=== PATIENT | male | born 1940 | race Caucasian/White ===

== ENCOUNTER 2016-07-23 09:24 | Outpatient (CLI) | payer OTHER | END 2016-07-23 23:00 | LOC: RT SRH 09:24 | DX: J98.8 Other specified respiratory disorders (principal) ==

== ENCOUNTER 2016-08-30 13:50 | Outpatient (CLI) | payer OTHER ==
--- NOTE | 2016-08-30 14:25 | DIAGNOSTIC IMAGING REPORT ---
PROCEDURE: XR CHEST 2 VIEW INDICATION: HEMOPTYSIS, initial encounter TECHNIQUE: PA and lateral view. COMPARISON: Chest x-ray 04/24/2016. FINDINGS: Lungs are clear. Borderline cardiomegaly. Mildly tortuous aorta. The mediastinum and pulmonary vessels are normal. Dual lead right-sided pacemaker. Moderate degenerative changes of the spine. Partially visualized hardware of the lumbar spine. IMPRESSION: 1. No acute changes 2. Pacemaker and borderline cardiomegaly
== END 2016-08-30 23:00 ==
LOC: XR SRH 13:50
DX: R04.2 Hemoptysis (principal); Z95.0 Presence of cardiac pacemaker

== ENCOUNTER → 2016-10-31 | Outpatient (CLI) | payer MEDICARE | LOC: LAB SRH 12:21 | DX: R06.00 Dyspnea, unspecified (principal); I50.9 Heart failure, unspecified | CPT/HCPCS: 90074; 90100; 91320; 91631 ==

== ENCOUNTER 2016-11-26 11:59 | Emergency (ER) | payer MEDICARE ==
--- NOTE | 2016-11-26 13:05 | DIAGNOSTIC IMAGING REPORT ---
PROCEDURE: CT HEAD WITHOUT CONTRAST INDICATION: WEAKNESS TECHNIQUE: Axial CT images were acquired through the head. Coronal and sagittal reformations were created. COMPARISON: Head C CT 01/23/2016 FINDINGS: Mild cerebral cortical atrophy. No intracranial hemorrhage or extraaxial fluid collections. Ventricles are normal in size, shape and position. There is no mass, mass effect or midline shift. The mark-white matter differentiation is normal. There is no edema. The calvarium is intact. There is opacification of both maxillary sinuses. Also fluid in the right ethmoid sinus. The extracranial soft tissues and orbits are normal. IMPRESSION: 1. No CT evidence of acute intracranial process. 2. Bilateral maxillary sinus opacification. 3. Findings discussed with Dr. Michele at 01:[address] scans at this facility use dose modulation, iterative reconstruction, and/or weight-based dosing when appropriate to reduce radiation dose to as low as reasonably achievable.
--- NOTE | 2016-11-26 15:24 | ED NURSING NOTES ---
Clinical Report - Nurses [facility] [address] [place] [address] 11/26/2016 12:00 Patient: NOLAN VICTORIA TRIAGE Triage time 1200 PM. Acuity: LEVEL 2. Chief Complaint: NUMBNESS. Alert. No acute distress. SEPSIS SCREEN: Sepsis Screen. Negative (no infection suspected/documented). NYA COMA SCORE: Nya Coma Scale: 15- eyes open spontaneously (4); best verbal response- oriented x 4 (5); best motor response- obeys commands (6). --12:19 Grisel Heaton R.N. late entry - 12:05 PM. --12:27 Terra Lindsey R.N. late entry - 12:05 PM. --12:27 Terra Lindsey R.N. late entry - 12:05 PM. --15:46 Terra Lindsey R.N. 12:05 11/26/16. BP: 139/90 (regular adult cuff) taken on the left arm, via an automated monitor, while sitting. HR: 88. RR: 16 (regular and unlabored). O2 saturation: 88% on room air. Temp: 97.8 F (oral). Pain level now: 4/10. Additional comments: on a pain pump. --15:46 Terra Lindsey R.N. Weight: 93.8 kg stated. Height/Length: 70 inches Per Patient. BMI: 29.7. --12:06 Grisel Heaton R.N. Medications Amoxicillin Oral. Digoxin Oral (Tablet 125 mcg) 1 tablet, daily. Flecainide Acetate Oral (Tablet 100 mg) 1 tablet, 3x a day. Lasix Oral (Tablet 40 mg) 1 tablet, 2x a day. --12:10 Grisel Heaton R.N. Metoprolol Succinate ER Oral (Tablet Extended Release 24 Hour 100 mg) 1 tablet, 2 tiems daily. Morphine/clonidine internal pump . OxyCODONE HCl ER Oral (Tablet ER 12 Hour Abuse-Deterrent 10 mg) 5 mg, 2times daily. Potassium Oral 1 tablet, 2x a day (10 mg). Saw [place] Oral (Capsule 450 mg) 1 capsule, 2x a day. Soma Oral. TraZODone HCl Oral (Tablet 50 mg) 1 tablet, at bedtime. Warfarin Sodium Oral (Tablet 2.5 mg) 1 tablet, M/W/F. --12:10 Grisel Heaton R.N. Allergies Dilaudid. --12:10 Grisel Heaton R.N. Medication/allergy information source: the patient. --12:19 Grisel Heaton R.N. History Arrived by private vehicle. Historian: patient. Unaccompanied. Primary physician (Dr. Hamlin). The patient has had dizziness and weakness. He has had new onset of intermittent numbness of the left face. PAST MEDICAL HX: Immunizations: up-to-date. SOCIAL HX: Never smoker. No alcohol use or drug use. No infectious disease exposure. ABUSE ASSESSMENT: No report of abuse. SELF HARM ASSESSMENT: A self harm assessment was performed. The patient answered "no" to the question "Do you have thoughts of harming or killing yourself?" and "Have you recently had thoughts about harming or killing others?". FALL RISK ASSESSMENT: Fall risk assessment completed. No fall risk identified. NUTRITIONAL RISK ASSESSMENT: The nutritional risk assessment revealed no deficiencies. FUNCTIONAL ASSESSMENT: Functional assessment: no impairments noted. LEARNING NEEDS ASSESSMENT: The learning needs assessment revealed no barriers. SKIN INTEGRITY ASSESSMENT: Skin integrity risk assessment completed. No skin integrity risk identified. --12:19 Grisel Heaton R.N. ( Pt states that approximately 45 minutes ago started with "another episode to numbness on left arm and left face" according to patient this has been going on for about 1 week. Denies trouble walking, slurred speech, H/A, fever, vomiting/nausea, asymmetry, or weakness to any extremity. Pt does see Dr. Hamlin and currently saw him last for "bronchitis and currently taking Amoxicillin and on oxygen at home". Pt has been seeing an eye doctor for left ey pain. Pt is here to r/o stroke). This started just prior to arrival 45 minutes. Onset was gradual. Symptoms are gone now. This is a recurrent problem. (states past 45 minutes, and ongoing for about 1 week). --12:27 Terra Lindsey R.N. No alteration in mental status, headache, recent fall or impaired speech. No trouble walking or swallowing. --12:27 Terra Lindsey R.N. PROBLEMS: Cervical Strain. Contusion. Chest Wall Pain. Post-Op Complications. Atrial Fibrillation. Knee surg/pain . Tetanus Status. Gallstone(s). Gastroesophageal Reflux. --12:11 Grisel Heaton R.N. ADDITIONAL SURGERIES: Back Surgery. Cholecystectomy. Knee Surgery []. Neck Surgery. Pacemaker. Shoulder Surgery. Tonsillectomy. --12:11 Grisel Heaton R.N. Interventions ID band on patient. --12:19 Grisel Heaton R.N. PHYSICAL ASSESSMENT Ambulatory to room. In place: oxygen by nasal cannula. ( Pt does have a morphine pump located on left lower quadrant). GENERAL / NEURO / PSYCH: Awake. Oriented X 4. Alert. Appears in no acute distress. Speech normal. Mood/affect normal. Moves all extremities equally. No motor deficit. No sensory deficit. HEENT: No facial asymmetry noted. Pupils equal, round and reactive to light. RESPIRATORY: Decreased breath sounds bilaterally. Respirations not labored. CVS: Cardiac rhythm: atrial pacing. Capillary refill less than 2 seconds. SKIN: Skin is intact, warm and dry. --12:29 Terra Lindsey R.N. late entry - 12:05 PM. GENERAL / NEURO / PSYCH: NIH Stroke Scale: score 0. Level of Consciousness: alert (0). LOC Questions: both (0). LOC Commands: both (0). Best gaze: normal (0). Visual field loss: none (0). Facial palsy: normal (0). Motor arm: no drift right arm (0) and no drift left arm (0). Motor leg: no drift right leg (0) and no drift left leg (0). Limb ataxia: none (0). Sensory loss: none (0). Aphasia: none (0). Dysarthria: normal (0). Extinction and inattention: none (0). --12:46 Terra Lindsey R.N. late entry - 12:10 PM. Baseline functional status: usually alert, oriented x4 and cooperative. Verbal response: usually clear. Motor response: usually moves all extremities equally and requires assistance with ambulation- uses a cane --12:45 Terra Lindsey R.N. NURSING PROGRESS NOTES 12:12 11/26/2016 Site #1 started via IV in the right antecubital space with an 18g angiocath; one attempt. Blood drawn: rainbow set. Labeled in the presence of the patient and sent to the lab. Saline lock flushed with 10 mL saline. --12:17 Grisel Heaton R.N. Cardiac rhythm: atrial pacing. The initial plan of care for this patient has been created. Oxygen administered by nasal cannula at 2 liters. Patient gowned. Patient transported to [place] by stretcher with O2. (0209). Two patient identifiers checked. Call light placed in reach. Side rails up x 2. Bed placed in lowest position. Brakes of bed on. --12:31 Terra Lindsey R.N. 12:15 11/26/16. BP: 140/72 (regular adult cuff) taken on the left arm, via an automated monitor, while lying. HR: 82. RR: 16. O2 saturation: 88% on room air. Temp: 97.8 F (oral). Pain level now: 5/10. Additional comments: placed back on oxygen. --12:31 Terra Lindsey R.N. Patient returned from [place]. (1240). --12:47 Terra Lindsey R.N. Cardiac rhythm: atrial pacing. Patient ID band checked for patient name, birthdate and medical record number: patient confirmed. Blood samples drawn from the left antecubital space with butterfly by tech per protocol ; labeled in presence of the patient and sent to lab: rainbow set. Reassurance given. The patient is calm. Overall patient status is the same- he states feels better. GENERAL / NEURO / PSYCH: Denies headache, weakness and numbness. GI / : Denies nausea. Call light placed in reach. Side rails up x 2. Bed placed in lowest position. --12:51 Terra Lidnsey R.N. 12:47 11/26/16. BP: 103/58. HR: 60. RR: 15. O2 saturation: 100% on nasal cannula at 2 liters/minute. Pain level now: 10/07. --12:51 Terra Lindsey R.N. Patient ID band checked for patient name and birthdate: patient confirmed. Blood samples drawn from the left side with 23g by tech per protocol ; labeled in presence of the patient: rainbow set and red, green, purple and blue top. --12:53 Linnea Serna ER Tech1 Cardiac rhythm: atrial pacing and ventricular pacing. Oxygen administered. Reassurance given. The patient is calm and resting quietly. Overall patient status is the same- he states feels the same. GENERAL / NEURO / PSYCH: Denies weakness and numbness. Alert. No decreased alertness. Oriented X 4. Affect appears normal. Speech normal. Call light placed in reach. --13:21 Terra Lindsey R.N. 13:09 11/26/16. BP: 97/54. HR: 60. RR: 14. O2 saturation: 100% on nasal cannula at 2 liters/minute. Pain level now: 10/07. --13:21 Trera Lindsey R.N. 14:04 11/26/16. BP: 106/64. HR: 68. RR: 18. O2 saturation: 96%. --14:04 Grisel Heaton R.N. Oxygen administered by nasal cannula at 2 liters. Reassurance given. ( Pt updated on results, a bit anxious, food offered but declines. Waiting on test results). GENERAL / NEURO / PSYCH: Alert. Oriented X 4. Affect appears normal. Appears anxious. HEENT: Pupils equal, round and reactive to light. Call light placed in reach. Patient waiting for lab results. --14:43 Terra Lindsey R.N. DISPOSITION / DISCHARGE 15:43 11/26/2016 Site #1 removed upon discharge. Manual pressure, pressure dressing, bandaid and bandage applied. --15:43 Terra Lindsey R.N. Condition at departure: improved and stable. The goals identified in the patient's plan of care were met. No learning barriers present. Discharge instructions provided and reviewed with the patient. Patient verbalized understanding. No medication instructions, treatment instructions or referrals given to the patient. Written instructions not provided in Eritrean. The patient was discharged by the physician. He was discharged home and unaccompanied at time of discharge. He left the Emergency Department ambulatory and via private vehicle. Patient driving. FALL RISK ASSESSMENT: Fall risk assessment completed. No fall risk identified. --15:44 Terra Lindsey R.N. 15:42 11/26/16. BP: 132/66 (regular adult cuff) taken on the left arm, via an automated monitor, while sitting. HR: 60. RR: 16. O2 saturation: 100% on nasal cannula at 2 liters/minute. Temp: 97.8 F. Pain level now: 10/07. --15:44 Terra Lindsey R.N. Departure time: 1544 PM. --15:44 Terra Lindsey R.N. Locked/Released at 11/26/2016 15:46 by Terra Lindsey R.N.
--- NOTE | 2016-11-26 15:24 | ED ORDER SUMMARY ---
..... Patient: NOLAN VICTORIA OrderSheet [facility] VisitID: [id number] [place] [address] 76y, M Registration Date/Time: 11/26/2016 ORDER SHEET Weight: 93.8 kg (stated) Allergies: Dilaudid GENERAL ORDERS: CT Head wo Cont (Numbness to L face and arm) Urgent (12:13 11/26/2016 Miguel Lay) (12:32 EHassan R.N.) Stroke Panel Stat (12:13 11/26/2016 Miguel Lay) (Ack 12:33 LNations ER Tech1) (12:41 EHassan R.N.) EKG - ER Stat (12:13 11/26/2016 Miguel Lay) (12:24 PWeiler ER Tech1) CPK Urgent (12:46 11/26/2016 Miguel Lay) (Ack 12:49 PWeiler ER Tech1) (13:03 EHassan R.N.) Troponin-I Urgent (12:46 11/26/2016 Miguel Lay) (Ack 12:49 PWeiler ER Tech1) (13:03 EHassan R.N.) BNP Urgent (14:41 11/26/2016 Miguel Lay) (14:52 EHassan R.N.) MEDICATION ORDERS: IV FLUIDS: IV Saline Lock (12:13 11/26/2016 Miguel Lay) (12:17 Merritt R.N.) ORDER SHEET NOTES: [Electronically signed by Terra Lindsey R.N. (15:46 11/26/2016)] [Electronically signed by Stephen Michele Dr. (21:24 11/26/2016)] [Electronically locked/signed by Terra Lindsey R.N. (15:46 11/26/2016)]
--- NOTE | 2016-11-26 15:24 | ED ORDER SUMMARY ---
..... Patient: NOLAN VICTORIA OrderSheet [facility] VisitID: [id number] [place] [address] 76y, M Registration Date/Time: 11/26/2016 ORDER SHEET Weight: 93.8 kg (stated) Allergies: Dilaudid GENERAL ORDERS: CT Head wo Cont (Numbness to L face and arm) Urgent (12:13 11/26/2016 Miguel Lay) (12:32 EHassan R.N.) Stroke Panel Stat (12:13 11/26/2016 Miguel Lay) (Ack 12:33 LNations ER Tech1) (12:41 EHassan R.N.) EKG - ER Stat (12:13 11/26/2016 Miguel Lay) (12:24 PWeiler ER Tech1) CPK Urgent (12:46 11/26/2016 Miguel Lay) (Ack 12:49 PWeiler ER Tech1) (13:03 EHassan R.N.) Troponin-I Urgent (12:46 11/26/2016 Miguel Lay) (Ack 12:49 PWeiler ER Tech1) (13:03 EHassan R.N.) BNP Urgent (14:41 11/26/2016 Miguel Lay) (14:52 EHassan R.N.) MEDICATION ORDERS: IV FLUIDS: IV Saline Lock (12:13 11/26/2016 Miguel Lay) (12:17 Merritt R.N.) ORDER SHEET NOTES: [Electronically signed by Terra Lindsey R.N. (15:46 11/26/2016)] [Electronically signed by Stephen Michele Dr. (21:24 11/26/2016)] [Electronically locked/signed by Terra Lindsey R.N. (15:46 11/26/2016)]
--- NOTE | 2016-11-26 15:24 | ED CLINICAL REPORT ---
Clinical Report - Physicians/Mid Levels [facility] [address] [place] [address] 11/26/2016 12:00 Patient: NOLAN VICTORIA Time Seen: 12:07; initial patient contact. Arrived- By private vehicle. Historian- patient. HISTORY OF PRESENT ILLNESS Chief Complaint: PARESTHESIA. This started about 1 week ago and is still present (worse since 45 minutes ago). It was gradual in onset. The patient has had numbness. No impaired speech or swallowing, visual disturbance or recent fall. No difficulty walking. At its maximum deficit described as moderate. When seen in the E.D., deficit described as mild. No dizziness, altered mental status, seizure or blackouts. Usually is alert and oriented X3 and has normal mobility. Similar symptoms previously: None. Recent medical care: Not recently seen/assessed. REVIEW OF SYSTEMS No fever, headache, head injury, chest pain or difficulty breathing. All systems otherwise negative, except as recorded above. PAST HISTORY ( Cervical Strain. Contusion. Chest Wall Pain. Post-Op Complications. Atrial Fibrillation. Knee surg/pain . Tetanus Status. Gallstone(s). Gastroesophageal Reflux. SURGERIES: Back Surgery. Cholecystectomy. Knee Surgery []. Neck Surgery. Pacemaker. Shoulder Surgery. Tonsillectomy.). Medications: Metoprolol Succinate ER Oral (Tablet Extended Release 24 Hour 100 mg) 1 tablet, 2 tiems daily. Morphine/clonidine internal pump . OxyCODONE HCl ER Oral (Tablet ER 12 Hour Abuse-Deterrent 10 mg) 5 mg, 2times daily. Potassium Oral 1 tablet, 2x a day (10 mg). Saw [place] Oral (Capsule 450 mg) 1 capsule, 2x a day. Soma Oral. TraZODone HCl Oral (Tablet 50 mg) 1 tablet, at bedtime. Warfarin Sodium Oral (Tablet 2.5 mg) 1 tablet, M/W/. Amoxicillin Oral. Digoxin Oral (Tablet 125 mcg) 1 tablet, daily. Flecainide Acetate Oral (Tablet 100 mg) 1 tablet, 3x a day. Lasix Oral (Tablet 40 mg) 1 tablet, 2x a day. Allergies: Dilaudid. SOCIAL HISTORY Never smoker. No alcohol use or drug use. ADDITIONAL NOTES The nursing notes have been reviewed. PHYSICAL EXAM Vital Signs: 11/26/2016 12:15 BP: 140/72. HR: 82. RR: 16. O2 saturation: 88%. Temp: 97.8 F. Pain level now: 11/06. Have been reviewed. Hypertensive. Heart rate normal. Respiratory rate normal. Temperature normal. Oxygen saturation low. Appearance: Alert. No acute distress. Head: Head atraumatic. Eyes: Pupils equal, round and reactive to light. ENT: Airway intact. Pharynx normal. Neck: Normal inspection. Neck supple. No carotid bruit. CVS: Normal heart rate and rhythm. Heart sounds normal. Respiratory: No respiratory distress. Breath sounds normal. Abdomen: Soft and nontender. No organomegaly. Skin: Skin warm and dry. Normal skin color. No rash. Extremities: No calf tenderness. No lower extremity edema. Neuro: Alert. Oriented X 3. Mood/affect normal. Speech normal. Cranial nerves normal (as tested). No cerebellar findings. No motor deficit. No sensory deficit. Reflex exam: right triceps 2+, left triceps 2+, right brachioradialis 2+, left brachioradialis 2+, right patellar 2+ and left patellar 2+. LABS, X-RAYS, AND EKG EKG: EKG time: (1216). Unidentified rhythm present. Wide QRS- intraventricular conduction delay. LBBB. Left axis deviation. Prolonged QTc (497). Interpretation time: 1216. CT Head: (1. No CT evidence of acute intracranial process. 2. Bilateral maxillary sinus opacification.). Head CT performed without contrast. The study was independently viewed by me, interpreted by the radiologist and discussed with the radiologist. Prior studies were not available for comparison. Interpretation time: 1300. Laboratory Tests: CBC w Diff: (CLINT: 11/26/2016 12:45) ( MsgRcvd 11/26/2016 13:05) Final results Test Result Flag Units (Reference) WHITE BLOOD COUNT 7.9 K/uL (4.5-11.5) RED BLOOD COUNT 5.06 M/uL (4.50-5.90) HEMOGLOBIN 13.8 gm/dL (13.5-17.5) HEMATOCRIT 41.4 % (41.0-53.0) MEAN CELL VOLUME 82 fL (80-100) MEAN CORPUSCULAR HGB 27 pg (26-34) MEAN CORPUSCULAR HGB CONC 33 g/dL (31-37) RED CELL DISTRIBUTION WIDTH 14.6 % (11.6-14.8) PLATELET COUNT 266 K/uL (150-400) NEUTROPHIL % 59.5 % (50-75) LYMPH % 25.6 % (25-40) MONO % 8.9 % (3-14) EOSINOPHIL % 5.8 H % (0-4) BASOPHIL % 0.2 % (0-2) PT with INR: (CLINT: 11/26/2016 12:45) ( [facility] [place] 11/26/2016 13:14) Final results Test Result Flag Units (Reference) INR 2.1 H (0.8-1.2) Low Intensity Therapy: INR 1.5-2.0 PT range 18.5-23.1Mod.Intensity Therapy: INR 2.0-3.0 PT range 23.1-31.5High Intensity Therapy: INR 2.5-3.5 PT range 27.4-35.5High Intensity Therapy 2: INR 3.0-4.0 PT range 31.5-39.3 APTT 43 H SECONDS (24-34) FIBRINOGEN 504 H mg/dL (193-455) D-DIMER QUANTITATIVE 1.17 H ug/mLFEU (0.27-0.52) The primary value of this quantitative assay relates toits negative predictive value (i.e. exclusion) of pulmonaryembolism/deep vein thrombosis/DIC.Elevated levels of d-dimer may also occur with:, age, cancer, inflammation, liver disease,post-op, infection, hematoma, coronary disease, peripheralarteriopathy, bleeding disorders and thrombolytic treatment.Results should be correlated with other clinical andradiological data.Testing Methodology: Latex Immunoassay BNP: (CLINT: 11/26/2016 12:45) ( [facility] [place] 11/26/2016 15:08) Final results Test Result Flag Units (Reference) B-TYPE NATRIURETIC PEPTIDE 153 H pg/ml (5-100) CMP: (CLINT: 11/26/2016 12:45) ( MsgRcvd 11/26/2016 14:21) Final results Test Result Flag Units (Reference) GLUCOSE 125 H mg/dL (70-110) BUN 23 H mg/dL (7-18) CREATININE 1.1 mg/dL (0.6-1.3) Estimated GFR >60 mL/min Estimated GFR- >60 mL/min Note: Persistent reduction over 3 months in eGFR<60 mL/min/1.73 m2 defines CKD. Patients with eGFR values>=60 mL/min/1.73 m2 may also have CKD if evidence ofpersistent proteinuria. Additional information may be foundat www.kidney.org. SODIUM 138 mmol/L (136-145) POTASSIUM 4.5 mmol/L (3.5-5.1) CHLORIDE 100 mmol/L (98-107) CARBON DIOXIDE 35 H mmol/L (21-32) CALCIUM 9.1 mg/dL (8.5-10.1) TOTAL PROTEIN 7.9 g/dL (6.4-8.2) ALBUMIN 3.1 L g/dL (3.3-5.0) BILIRUBIN, TOTAL 0.4 mg/dL (0.0-1.0) ALKALINE PHOSPHATASE 133 H U/L (46-116) AST (SGOT) 77 H U/L (15-37) ALT (SGPT) 87 H U/L (12-78) CPK 85 U/L (24-260) TROPONIN I <0.05 L ng/mL (0.00-1.5) TROPONIN REFERENCE RANGE:<0.1 NEGATIVE0.1-1.5 INDETERMINANT>1.5 POSITIVE . PROGRESS AND PROCEDURES Discussed case with patient's primary care provider, (call returned 14:50 Dr. Patel, recommended checking BNP, if nl. OK to D/C and f/u there this week.). Reviewed test results. Disposition: Discharged home in good condition. Condition: good. CLINICAL IMPRESSION Paresthesia INSTRUCTIONS Your Current Medications: CONTINUE TAKING THE FOLLOWING MEDICATIONS: Amoxicillin Oral. Digoxin Oral : Tablet 125 mcg, 1 tablet daily. Flecainide Acetate Oral : Tablet 100 mg, 1 tablet 3x a day. Lasix Oral : Tablet 40 mg, 1 tablet 2x a day. Metoprolol Succinate ER Oral : Tablet Extended Release 24 Hour 100 mg, 1 tablet 2 tiems daily. Morphine/clonidine internal pump *. OxyCODONE HCl ER Oral : Tablet ER 12 Hour Abuse-Deterrent 10 mg, 5 mg 2times daily. Potassium Oral : 1 tablet 2x a day, 10 mg. Saw [place] Oral : Capsule 450 mg, 1 capsule 2x a day. Soma Oral. TraZODone HCl Oral : Tablet 50 mg, 1 tablet at bedtime. Warfarin Sodium Oral : Tablet 2.5 mg, 1 tablet M//. Follow-up: Follow up with your doctor in about two days. Call for an appointment. Blood pressure screening was not performed during this visit because the patient has an active diagnosis of hypertension. (Electronically signed by Stephen Michele Dr. 11/26/2016 21:24)
--- NOTE | 2016-11-26 21:24 | ED DISCHARGE INSTRUCTIONS ---
Patient: NOLAN VICTORIA General Instructions [facility] VisitID: [id number] [place] [address] 76y, M Registration Date/Time: 11/26/2016 Paresthesia INSTRUCTIONS Your Current Medications: CONTINUE TAKING THE FOLLOWING MEDICATIONS: Amoxicillin Oral. Digoxin Oral : Tablet 125 mcg, 1 tablet daily. Flecainide Acetate Oral : Tablet 100 mg, 1 tablet 3x a day. Lasix Oral : Tablet 40 mg, 1 tablet 2x a day. Metoprolol Succinate ER Oral : Tablet Extended Release 24 Hour 100 mg, 1 tablet 2 tiems daily. Morphine/clonidine internal pump *. OxyCODONE HCl ER Oral : Tablet ER 12 Hour Abuse-Deterrent 10 mg, 5 mg 2times daily. Potassium Oral : 1 tablet 2x a day, 10 mg. Saw [place] Oral : Capsule 450 mg, 1 capsule 2x a day. Soma Oral. TraZODone HCl Oral : Tablet 50 mg, 1 tablet at bedtime. Warfarin Sodium Oral : Tablet 2.5 mg, 1 tablet //. Follow-up: Follow up with your doctor in about two days. Call for an appointment. Blood pressure screening was not performed during this visit because the patient has an active diagnosis of hypertension. ADDITIONAL INFORMATION Paraesthesias Paraesthesia refers to a burning or prickling sensation that is sometimes felt in the hands, arms, legs or feet. It can also occur in other parts of the body. It can also feel like tingling or numbness, skin crawling or itching.The sensation is usually painless. Most people have experienced pins and needles. This feeling happens when legs have been crossed for too long and pressure is placed on a nerve. This is a temporary paraesthesia. It quickly goes away once the pressure is relieved. There are many possible causes for chronic paraesthesias. These include such disorders as stroke, herniated disk (pressing on a nerve), trapped nerve in the shoulder, elbow or wrist (such as carpal tunnel syndrome), vitamin deficiencies or even certain medicines. Laboratory tests are needed to make an accurate diagnosis. These tests may include blood tests, X-ray, CT (computerized tomography) scan or a muscle test (electromyography).Depending on the cause, treatment may include physical therapy. Home Care: Do not make any changes to your medicines without advice from your doctor. If vitamins have been prescribed, remember to take them daily at the recommended dose. Because of a decrease in feeling, a numb hand or foot may be more prone to injury. Take care to protect these areas from cuts, bumps, bruises, east or other injury. Keep your nails trimmed and wash your hands and feet often. Wear shoes that fit well to avoid pressure points, blisters and ulcers. Look at your hands and feet carefully (including the soles of your feet and between your toes) at least once a week and notify your doctor of any open wounds or signs of infection. Follow Up with your doctor or as advised by our staff. You may need further testing to determine the exact cause of your paraesthesia. [NOTE: If blood tests, X-ray, CT scan or electromyography were done, specialists will review them. You will be notified of any new findings that may affect your care.] Get Prompt Medical Attention if any of the following occur: Numbness or weakness of the face, one arm or one leg Slurred speech, confusion, trouble speaking, walking or seeing Severe headache, fainting spell, dizziness or seizure Chest, arm, neck or upper back pain Loss of bladder or bowel control Open wound with redness, swelling or pus You have been given the following additional information: Paraesthesias (Electronically signed by Stephen Michele Dr. 11/26/2016 21:24)
--- NOTE | 2016-11-26 21:24 | ED MED RECONCILIATION SUMMARY ---
Patient: NOLAN VICTORIA Medication Reconciliation Report [facility] VisitID: [id number] [address] [place] [address] 76y, M Registration Date/Time: 11/26/2016 Weight: 93.8 kg Height/Length: 70 in. BMI: 29.7 ALLERGIES: Dilaudid The patient's Home Medications are listed below: CONTINUE TAKING THE FOLLOWING MEDICATIONS: Amoxicillin Oral Digoxin Oral (125 mcg) 1 tablet, daily Flecainide Acetate Oral (100 mg) 1 tablet, 3x a day Lasix Oral (40 mg) 1 tablet, 2x a day Metoprolol Succinate ER Oral (100 mg) 1 tablet, 2 tiems daily Morphine/clonidine internal pump OxyCODONE HCl ER Oral (10 mg) 5 mg, 2times daily Potassium Oral 1 tablet, 2x a day, 10 mg Saw [place] Oral (450 mg) 1 capsule, 2x a day Soma Oral TraZODone HCl Oral (50 mg) 1 tablet, at bedtime Warfarin Sodium Oral (2.5 mg) 1 tablet, M/W/F The source(s) of the original Home Medication information: patient The following Medications were given to the patient in the Emergency Department: None. The following Medications were prescribed to the patient: None.
--- NOTE | 2016-11-26 21:24 | ED MAR SUMMARY ---
..... Medication Administration Record [facility] [address] [place], [place] [id number] Patient: NOLAN VICTORIA Visit ID: [id number] 76y, M Weight: 93.8 kg Height/Length: 70 in BMI: 29.7 ALLERGIES: Dilaudid
--- NOTE | 2016-11-26 21:24 | ED MAR SUMMARY ---
..... Medication Administration Record [facility] [address] [place], [place] [id number] Patient: NOLAN VICTORIA Visit ID: [id number] 76y, M Weight: 93.8 kg Height/Length: 70 in BMI: 29.7 ALLERGIES: Dilaudid
--- NOTE | 2016-11-26 21:24 | ED MED RECONCILIATION SUMMARY ---
Patient: NOLAN VICTORIA Medication Reconciliation Report [facility] VisitID: [id number] [address] [place] [address] 76y, M Registration Date/Time: 11/26/2016 Weight: 93.8 kg Height/Length: 70 in. BMI: 29.7 ALLERGIES: Dilaudid The patient's Home Medications are listed below: CONTINUE TAKING THE FOLLOWING MEDICATIONS: Amoxicillin Oral Digoxin Oral (125 mcg) 1 tablet, daily Flecainide Acetate Oral (100 mg) 1 tablet, 3x a day Lasix Oral (40 mg) 1 tablet, 2x a day Metoprolol Succinate ER Oral (100 mg) 1 tablet, 2 tiems daily Morphine/clonidine internal pump OxyCODONE HCl ER Oral (10 mg) 5 mg, 2times daily Potassium Oral 1 tablet, 2x a day, 10 mg Saw [place] Oral (450 mg) 1 capsule, 2x a day Soma Oral TraZODone HCl Oral (50 mg) 1 tablet, at bedtime Warfarin Sodium Oral (2.5 mg) 1 tablet, M/W/F The source(s) of the original Home Medication information: patient The following Medications were given to the patient in the Emergency Department: None. The following Medications were prescribed to the patient: None.
== END 2016-11-26 15:43 | disposition home or self-care (01) ==
LOC: ED SRH 11:59
DX: R20.0 Anesthesia of skin (principal); I48.91 Unspecified atrial fibrillation; Z95.0 Presence of cardiac pacemaker; Z79.899 Other long term (current) drug therapy; Z79.891 Long term (current) use of opiate analgesic; Z79.01 Long term (current) use of anticoagulants; Z79.2 Long term (current) use of antibiotics; Z88.5 Allergy status to narcotic agent
CPT/HCPCS: 90074; 90100; 90616; 91320; 91556; 92610; 94001; 94050; 94060; 95059